=== PATIENT | male | born 1980 | race Caucasian/White ===

== ENCOUNTER 2022-06-25 07:41 | Day surgery (SDC) | payer BC ==
[~2022-06-25] VITALS: Ht 172.7 cm; Wt 93.0 kg
--- NOTE | 2022-06-25 12:00 | NUR ---
RN MS NOTES RECEIVED PT AWAKE, ALERT AND ORIENTED, AMBULATED TO HIS ROOM WITH STEADY GAIT, NO COMPLAINT OF PAIN, RESPIRATIONS NORMAL, ASSISTED TO ROOM, MADE COMFORTABLE, ROOM SET UP ORIENTATION PROVIDED, VERBALIZED UNDERSTANDING, VITALS TAKEN AND RECORDED, ORDERS NOTED AND CARRIED OUT.
[2022-06-25 12:39] LABS: BASOPHILS # (AUTO) 0.1 K/uL (0.0-0.2); BASOPHILS % (AUTO) 0.9 % (0.0-2.0); EOSINOPHILS % (AUTO) 6.2 % (0.0-6.0); HEMATOCRIT 35 % (39-51); HEMOGLOBIN 11.6 g/dL (13.5-17.5); LYMPHOCYTES # (AUTO) 1.7 K/uL (0.8-4.8); LYMPHOCYTES % (AUTO) 21.6 % (20.0-44.0); MEAN CORPUSCULAR HGB CONC 33 g/dl (31.0-36.0); MEAN CORPUSCULAR VOLUME 82 fL (80-96); MONOCYTES # (AUTO) 0.6 K/uL (0.1-1.30); MONOCYTES % (AUTO) 7.7 % (2.0-12.0); NEUTROPHILS % (AUTO) 63.6 % (43.0-81.0); PLATELET COUNT (AUTO) 152 K/uL (150-450); WHITE BLOOD COUNT (AUTO) 7.8 K/uL (4.3-11.0)
[2022-06-25 12:50] LABS: CALCIUM, SERUM 8.5 mg/dL (8.5-10.1); POTASSIUM 4.4 mmol/L (3.5-5.1)
[2022-06-25 12:53] LABS: CREATININE 8.5 mg/dL (0.6-1.3)
--- NOTE | 2022-06-25 15:00 | NUR ---
RN MS NOTES PT AWAKE, ALERT AND ORIENTED, DENIES PAIN OR ANY DISCOMFORT, PT SIGNED CONSENTS EXCEPT ANESTHESIA CONSENT, PT WOULD LIKE TO SPEAK WITH ANESTHESIOLOGIST FIRST BEFORE SIGNING CONSENT, IV LINE PLACED AT LEFT A/C G22, BS CHECKED 110, PREOP CHECKLIST COMPLETED, PICKED UP BY O.R. STAFF VIA BED IN STABLE CONDITION.
[2022-06-25] MEDS ORDERED: HEPARIN SODIUM, PORCINE 1,000 UNIT/ML VIAL ONE (15:18)
[2022-06-25] MEDS ORDERED: LIDOCAINE HCL/MPF 1% 30 ML VIAL IJ ONE (15:18)
[2022-06-25] MEDS ORDERED: FURO20TA4 PO (15:32)
[2022-06-25] MEDS ORDERED: ROSU40TA PO (15:32)
[2022-06-25] MEDS ORDERED: SITA100T PO (15:32)
[2022-06-25] MEDS ORDERED: ANESTHESIA TRAY IN PYXIS 1 EA TRAY MC ONE (15:32)
[2022-06-25] MEDS ORDERED: FURO40TA5 PO (15:32)
[2022-06-25] MEDS ORDERED: VIT1TABL44 PO (15:32)
[2022-06-25] MEDS ORDERED: SUCR500T PO (15:32)
[2022-06-25] MEDS ORDERED: ASPI-1169 PO (15:32)
[2022-06-25] MEDS ORDERED: GLIP5TAB13 PO ×2 (15:32)
[2022-06-25] MEDS ORDERED: CARV6.252 PO (15:32)
[2022-06-25] MEDS ORDERED: FAMOTIDINE/PF INJ 20 MG/2 ML VIAL IV ONE (15:37)
[2022-06-25] MEDS ORDERED: FENTANYL PF 250MCG/5ML AMPUL ONE (15:37)
[2022-06-25] MEDS ORDERED: ATRACURIUM 100MG/10 ML MDV IV ONE (15:37)
[2022-06-25] MEDS ORDERED: HEPARIN SODIUM, PORCINE 5000 UNITS/1 ML VIAL ONE (16:09)
[2022-06-25] MEDS ORDERED: protAMINE SULFATE 10 MG/ML VIAL IV ONE (16:10)
[2022-06-25] MEDS ORDERED: GELATIN SPONGE,ABSORBABLE 1 SPONGE SPONGE TP ONE (17:08)
[2022-06-25] MEDS ORDERED: BUPIVACAINE 0.25% 75 MG/30 ML VIAL ONE (17:11)
[2022-06-25] MEDS ORDERED: MEPERIDINE25 MG SYR 25 MG/ML VIAL ONE (18:14)
--- NOTE | 2022-06-25 18:40 | NUR ---
RN MS NOTES RECEIVED PT FROM O.R. STAFF VIA BED, PT IS ALERT, EYES CLOSED, DENIES PAIN, NOT IN DISTRESS, NO BLEEDING NOTED TO LEFT ARM S/P AV SHUNT PLACEMENT, DRESSING DRY AND INTACT, VITALS TAKEN AND RECORDED, POST OP ORDERS RECEIVED FROM MD, NOTED AND CARRIED OUT, WILL CONTINUE TO MONITOR.
[2022-06-25 18:43] VITALS: BP 133/78
--- NOTE | 2022-06-25 20:45 | NUR ---
MS CONTINUOUS IMPROVEMENT ANALYST NOTES PATIENT DISCHARGE IN STABLE MEDICAL CONDITION. A/O X 4. AMBULATORY. NO IV ACCESS. NAME ARM BAND REMOVED. HEALTH TEACHING AND DISCHARGE INSTRUCTION GIVEN AND VERBALIZED UNDERSTANDING. PATIENT AND FAMILY HAD TEACHINGS FROM MD AT BEDSIDE PER NURSE LOPEZ. PATIENT LEFT UNIT WITH NO SIGNS OF DISTRESS. CHARGE NURSE AWARE OF THE DISCHARGE.
== END 2022-06-25 18:00 | disposition home or self-care (01) ==
LOC: DS 07:41 → MED 11:50 → UNDOADMIN 11:50 → DS 18:00 → UNDODISIN 21:00
PROVIDERS: ATTEND Surgery Vascular Surgery
DX: I12.0 Hypertensive chronic kidney disease with stage 5 chronic kidney disease or end stage renal disease (principal); N18.6 End stage renal disease; E11.22 Type 2 diabetes mellitus with diabetic chronic kidney disease; Z99.2 Dependence on renal dialysis; Z98.890 Other specified postprocedural states; Z79.899 Other long term (current) drug therapy
CPT/HCPCS: 36818; 93930; 93970; 71045; 93005 ×2; 85025; 80048; 85610; 85730; 36415; 86850; 82962 ×2; J0690; J2704; J3490 ×4; J1644 ×3; J2720; J2765; J2405; J7030; A6403; J3010; J2175; C1769; G0378